=== PATIENT | female | born 1950 | race Caucasian/White ===

== ENCOUNTER 2021-06-20 10:09 | Emergency (ER) | payer MEDICARE ==
[~2021-06-20] VITALS: Ht 162.6 cm; Wt 86.2 kg
[2021-06-20 10:37] VITALS: BP 156/103
--- NOTE | 2021-06-20 10:43 | NUR ---
ARRIVAL PATIENT ARRIVED TO [facility] AMBULATORY C/O BACK PAIN FOR THE PAST 2 DAYS, RECENTLY DROVE FROM [place] TO READING AND HAS A HISTORY OF CHRONIC BACK PAIN, DID TAKE ALEVE LAST NIGHT BUT TODAY HER BACK CONTINUES TO HURT, CAME TO THE ED FOR EVAL, DOCTOR MAX NOTIFIED OF PATIENT'S ARRIVAL.
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
[2021-06-20 11:10] VITALS: BP 146/87
== END 2021-06-20 11:14 | disposition home or self-care (01) ==
LOC: ER 10:09
DX: M54.41 Lumbago with sciatica, right side (principal); E11.9 Type 2 diabetes mellitus without complications; E78.00 Pure hypercholesterolemia, unspecified; I10 Essential (primary) hypertension
CPT/HCPCS: 99281